=== PATIENT | female | born 1990 | race Caucasian/White ===

== ENCOUNTER → 2016-06-21 | Outpatient (CLI) | payer BC ==
--- NOTE | 2016-06-22 14:12 | EKG ---
Date Performed: 06/21/2016 Time Performed: 13:56:22 PTAGE: 26 years EKG: Sinus rhythm WITH SINUS ARRHYTHMIA NORMAL ECG NO PREVIOUS TRACING DOCTOR: Daniel Alston Interpretating Date/Time 06/22/2016 14:10:12
== END ==
LOC: CPRE 13:29
PROVIDERS: ATTEND Obstetrics & Gynecology
DX: Z01.810 Encounter for preprocedural cardiovascular examination (principal); R10.2 Pelvic and perineal pain; N92.0 Excessive and frequent menstruation with regular cycle; N94.6 Dysmenorrhea, unspecified
CPT/HCPCS: 93005

== ENCOUNTER → 2016-06-26 | Day surgery (SDC) | payer BC ==
--- NOTE | 2016-06-25 10:55 | MH ---
cc: CARLOS NOVAK M.D. DATE OF ADMISSION: 06/26/2016 ADMISSION DIAGNOSIS Menorrhagia, dysmenorrhea. HISTORY OF PRESENT ILLNESS The patient is a 26-year-old white female para 0. LMP of 06/06/2017. Had returned for annual visit on 05/16/2016 for increasing menstrual flow and menstrual pain. Her Pap smear was normal. Her vaginal ultrasound was normal. She is now admitted for surgical evaluation. PAST MEDICAL HISTORY PREVIOUS SURGERY None. MEDICATIONS Vitamins. ALLERGIES None. TRANSFUSIONS None. OBSTETRICAL HISTORY None. SOCIAL HISTORY She is , employed. Alcohol, tobacco and drugs are none. FAMILY HISTORY Noncontributory. PHYSICAL EXAMINATION GENERAL: This is a well-nourished, well-developed white female. VITAL SIGNS: Stable. HEENT: Exam is normal. CHEST: Clear. HEART: Regular rate. BREASTS: The breasts are symmetrical and benign. PELVIC EXAM: Normal external genitalia and BUS. Vagina is normal. Cervix normal. Uterus normal in size, shape, anterior. No adnexal masses. ASSESSMENT As above. PLAN She is now admitted for hysteroscopy, D&C, laparoscopy and chromotubation with methylene blue. While in the office I have explained the procedures, the risks, benefits and complications. The patient would like to proceed. MD DOMONIQUE Gomez/SSB /8:00 AM /10:49 AM
[~2016-06-26] VITALS: Ht 157.5 cm; Wt 52.0 kg
[~2016-06-26] MED LIST: *morphine SULFATE 8 MG/ML PERIprocedure ONLY ONE; ACETAMINOPHEN 1000 MG/100 ML VIAL IV ONE; ACETAMINOPHEN 1000 MG/100 ML VIAL IV SCH; BUPIVACAINE/EPINEPHRINE 0.25% PF 30 ML VIAL ONE; DEXAMETHASONE SOD PHOS 4 MG/ML VIAL ONE; FAMOTIDINE 20 MG/2 ML VIAL ONE; INSULIN HUMAN REGULAR 1,000 UNITS/10 ML VIAL SQ PRN; KETOROLAC TROMETHAMINE 60 MG/2 ML (IM) VIAL IM ONE; LACTATED RINGER'S 1000 ML INJ 1,000 ML IV ONE; LACTATED RINGER'S 1000 ML INJ 1,000 ML ONE; LACTATED RINGER'S 1000 ML IV SCH; METHYLENE BLUE 100 MG/10 ML VIAL OTHER ONE; METOCLOPRAMIDE HCL 10 MG/2 ML VIAL IV PRN; METOPROLOL TARTRATE 25 MG TAB PO PRN; MIDAZOLAM HCL 2 MG/2 ML VIAL ONE; NEOSTIGMINE 3 MG/3 ML SYR IV ONE; ONDANSETRON HCL 4 MG/2 ML VIAL IV PUSH ONE; PROPOFOL 200 MG/20 ML AMP IV ONE; SODIUM CHLORID 0.9% 500 ML IV SCH; SODIUM CHLORIDE 0.9% INJ 100 ML ONE; ceFAZolin 1,000 MG/NS 100 ML IV SCH; ceFAZolin INJ 1,000 MG VIAL ONE; fentaNYL CITRATE 250 MCG/5 ML AMP ONE; oxyCODONE/ACETAMINOPHEN 5 MG/325 MG TAB PO PRN
[2016-06-26 05:48] VITALS: BP 95/63; PULSE 66; RESP 20; TEMP 98.5; O2SAT 98
[2016-06-26 09:31] VITALS: BP 101/62; PULSE 56; RESP 16; TEMP 97.5; O2SAT 98
--- NOTE | 2016-06-30 08:50 | MP ---
cc: CARLOS NOVAK M.D. DATE OF SURGERY: 06/26/2016 ADMISSION DIAGNOSIS Menorrhagia, dysmenorrhea. POSTOPERATIVE DIAGNOSIS Menorrhagia, dysmenorrhea. Pathology pending. PROCEDURE Hysteroscopy, D&C, laparoscopy and chromotubation methylene blue. ANESTHESIA General ET. SURGEON Carlos Novak MD BUSINESS ANALYST [employer] Nadege Jackson. ESTIMATED BLOOD LOSS Less than 10 ccs. FLUIDS About half liter crystalloid. OBJECTIVE FINDINGS Following induction of adequate general endotracheal anesthesia, the patient was prepped and draped supine on the operating table in the dorsal lithotomy position in the usual sterile fashion with the bladder being drained via in and out catheterization. Exam under anesthesia revealed a normal size, shape anterior uterus, no adnexal masses. Heavy weighted speculum was placed in the posterior fornix of the vagina. Anterior lip of the cervix was grasped with a single-tooth tenaculum. Cervix and uterus sounded to 8 cm. Cervix was then dilated to #18 Hanks dilator. The hysteroscope was passed, revealed normal cavity, normal canal. The scope was withdrawn. Endocervical curetting was obtained with a small serrated curette, endometrium small sharp curette. A HUMI was placed. The other vaginal instruments were removed. The moisture meter operator's gloves were changed. The umbilicus was injected with 2 ccs of 0.5% Marcaine plus epinephrine and additional 2 ccs suprapubic. A 5 mm incision was made, a 5 port was placed at the umbilicus. The scope was inserted. The second port was placed at the suprapubic. Pelvic contents revealed normal size, shape uterus, normal tubes, normal ovaries, normal cul-de-sacs, normal liver edge, normal appendix. Methylene blue was now injected through the HUMI and it readily spilled from both tubes. The procedure was now terminated. The scope was removed, gas was allowed to escape. The small ports removed and sutured with 4-0 Monocryl. HUMI removed from the vagina. The patient's legs were taken down from the stirrups. She was awakened and taken to the recovery room in good condition. Carlos Novak MD JAW/TLL /7:40 AM /8:35 AM
== END | disposition home or self-care (01) ==
LOC: HSDC 05:10
PROVIDERS: ATTEND Obstetrics & Gynecology
DX: N92.0 Excessive and frequent menstruation with regular cycle (principal); N94.6 Dysmenorrhea, unspecified; R10.2 Pelvic and perineal pain
CPT/HCPCS: 88305; J0131; J0690; J1100; J1885; J2250; J2270; J2405; J2710; J3010; J7120